=== PATIENT | female | born 1935 | race Caucasian/White ===

== ENCOUNTER 2018-12-20 09:31 | Inpatient (IN) | payer MEDICARE, BC ==
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
[2018-12-20] MEDS ORDERED: Albuterol/Ipratropium 3.0-0.5 MG/3 ML Neb Soln NEB ONE (09:55)
[2018-12-20] MEDS ORDERED: Dextrose 5%-0.9% NaCl 1,000 ML IV SCH (10:00)
[2018-12-20] MEDS ORDERED: LORazepam 2 MG/ML SDV IVPUSH ONE ×2 (10:25→23:02)
[2018-12-20] MEDS ORDERED: LORazepam 2 MG/ML SDV ONE (10:27)
[2018-12-20] MEDS ORDERED: Furosemide 40 MG/4 ML VIAL IVPUSH ONE (11:45)
[2018-12-20] MEDS ORDERED: Morphine 2 MG/ML Syringe IVPUSH PRN (12:19)
[2018-12-20] MEDS ORDERED: Albuterol/Ipratropium 3.0-0.5 MG/3 ML Neb Soln NEB PRN (12:19)
[2018-12-20] MEDS ORDERED: Ondansetron 4 MG/2 ML SDV IV PRN (12:19)
--- NOTE | 2018-12-20 12:23 | PCM.HP ---
H&P History of Present Illness - General Date of Service: 12/20/18 Admit Problem/Dx: Admission Diagnosis/Problem Admission Diagnosis/Problem COPD, Severe chronic obstructive pulmonary disease Source of Information: Patient, Family, Provider, RN Notes Reviewed History Limitations: Reports: Altered Mental Status, Respiratory Distress - History of Present Illness Initial Comments - Free Text/Narative: This is an 83 yo elderly white female with past medical hx/o Advanced COPD with Chronic Hypoxia Requiring Supplemental O2 at 2L NC who comes in for evaluation of acute decompensation and worsening dyspnea. She is confused and unable to answer simple questions. She carries a hx/o end stage COPD and currently on BIPAP while in ED. She uses accessory muscles and her breathing is labored. Her initial work up in ED reveals a severely acidotic ABG with pH of 7.20, POC2 level of 124 and PO2 level of 33. After talking to her family/DPOA how they want me to treat her, they decided to make her DNR/DNI with comfort measures. Therefore she is being admitted for end of life care. - Related Data Allergies/Adverse Reactions: Allergies Allergy/AdvReac Type Severity Reaction Status Date / Time Penicillins Allergy Cannot Verified 12/20/18 09:51 Remember Home Medications: Home Meds Arformoterol [Brovana] 15 mcg INH Q12HR 12/20/18 [History] Budesonide [Pulmicort] 0.5 mg IH BID 12/20/18 [History] Gabapentin [Neurontin] 300 mg PO QID 12/20/18 [History] LORazepam [Ativan] 0.5 mg PO TID PRN 12/20/18 [History] Non-Formulary Medication [NF Drug] 2 puff INH DAILY 12/20/18 [History] Past Medical History HEENT History: Reports: Impaired Vision, Other (See Below) Other HEENT History: dentures upper and lower Cardiovascular History: Reports: Heart Failure, High Cholesterol Respiratory History: Reports: COPD (End-stage COPD. On oxygen at 2 L/m all times. 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: Musculoskeletal History: Reports: Back Pain, Chronic, Other (See Below) Other Musculoskeletal History: neck pain from bone spur Psychiatric History: Reports: Anxiety Social & Family History - Family History Family Medical History: Noncontributory - Tobacco Use Smoking Status *Q: Former Smoker Used Tobacco, but Quit: Yes Month/Year Tobacco Last Used: 2010 - Caffeine Use Caffeine Use: Reports: Coffee - Recreational Drug Use Recreational Drug Use: No - Living Situation & Occupation Living situation: Reports: Occupation: Retired H&P Review of Systems - Review of Systems: Review Of Systems: Unable To Obtain General: Reports: Malaise, Weakness, Fatigue. Denies: Fever, Chills HEENT: Reports: No Symptoms Pulmonary: Reports: Shortness of Breath, Wheezing Cardiovascular: Reports: Dyspnea on Exertion, Blood Pressure Problem Gastrointestinal: Reports: Constipation, Decreased Appetite. Denies: Abdominal Pain, Nausea, Vomiting Genitourinary: Reports: No Symptoms Musculoskeletal: Reports: Joint Pain Skin: Reports: Bruising. Denies: Cyanosis, Jaundice, Mottled, Diaphoresis, Erythema, Wound Psychiatric: Reports: Confusion, Anxiety. Denies: Agitation, Hallucinations, Suicidal Ideation Neurological: Reports: Weakness. Denies: Confusion, Gait Disturbance Hematologic/Lymphatic: Reports: No Symptoms Immunologic: Reports: No Symptoms Review of Systems Comment:: She has BIPAP on. Exam - Exam Exam: See Below - Vital Signs Vital Signs: Last Vital Signs Temp 36.9 C 12/20/18 09:41 Pulse 115 H 12/20/18 09:41 Resp 30 H 12/20/18 09:41 BP 166/70 H 12/20/18 09:41 Pulse Ox 51 L 12/20/18 09:45 - Exam Quality Assessment: Other (cachectic) General: Severe Distress, Lethargic, Other (eyes are closed and unable to respond appropriately ) HEENT: Conjunctiva Clear, Hearing Intact, Nares Patent, Normal Nasal Septum, Pupils Equal, Pupils Reactive Neck: Supple, Trachea Midline, Other (accessory muscle use) Lungs: Decreased Breath Sounds, Wheezing, Other (increased work of breathing). No: Normal Respiratory Effort Cardiovascular: Regular Rhythm, Tachycardia GI/Abdominal Exam: Normal Bowel Sounds, Soft, Non-Tender, No Organomegaly, No Distention, No Abnormal Bruit (Female) Exam: Deferred Rectal (Female) Exam: Deferred Back Exam: Decreased Range of Motion, Other (kyphotic) Extremities: Normal Inspection, Non-Tender, No Pedal Edema, Normal Capillary Refill Peripheral Pulses: 1+: Posterior Tibial (L), Posterior Tibial (R), Dorsalis Pedis (L), Dorsalis Pedis (R) Skin: Warm, Dry, Intact Neuro Extensive - Mental Status: Other (he is appropraite for neurological exam due to alterd state of mind). No: Oriented x3 Neuro Extensive - Motor, Sensory, Reflexes: Other (she is not appropriate for examination) Psychiatric: Other (lethargic) - Patient Data Lab Results Last 24 hrs: Laboratory Results - last 24 hr 12/20/18 12/20/18 12/20/18 Range/Units 09:45 10:10 10:10 WBC 6.52 (3.98-10.04) K/mm3 RBC 3.46 L (3.98-5.22) M/mm3 Hgb 11.4 (11.2-15.7) gm/L Hct 39.8 (34.1-44.9) % MCV 115.0 H (79.4-94.8) fl MCH 32.9 H (25.6-32.2) pg MCHC 28.6 L (32.2-35.5) g/dl RDW Std Deviation 54.3 H (36.4-46.3) fL Plt Count 159 L (182-369) K/mm3 MPV 10.6 (9.4-12.3) fl Neutrophils % (Manual) 80 H (40-60) % Band Neutrophils % 0 (0-10) % Lymphocytes % (Manual) 11 L (20-40) % Atypical Lymphs % 0 % Monocytes % (Manual) 9 (2-10) % Eosinophils % (Manual) 0 L (0.7-5.8) % Basophils % (Manual) 0 L (0.1-1.2) Toxic Granulation 1+ slight Platelet Estimate Adequate Polychromasia 1+ slight Hypochromasia 2+ moderate Macrocytosis 2+ moderate Stomatocytes 2+ moderate RBC Morph Comment Abnormal PT 10.8 (9.5-12.1) SECONDS INR 0.99 APTT 27 (24-31) SECONDS Puncture Site Rt radial ABG pH 7.20 L (7.35-7.45) ABG pCO2 124.1 H* (35.0-45.0) mmHg ABG pO2 42.0 L (80.0-100.0) mmHg ABG HCO3 46.6 H (22.0-26.0) meq/L ABG O2 Saturation 65.7 L (96.0-97.0) % ABG Base Excess 14.2 H (-2-2.0) Alfredo Test Positive A-a Gradient 8 mmHg O2 Delivery Device Bipap Oxygen Flow Rate 3.0 Sodium (136-145) mEq/L Potassium (3.5-5.1) mEq/L Chloride (98-107) mEq/L Carbon Dioxide (21-32) mEq/L Anion Gap (5-15) BUN (7-18) mg/dL Creatinine (0.55-1.02) mg/dL Est Cr Clr Drug Dosing Estimated GFR (MDRD) (>60) mL/min BUN/Creatinine Ratio (14-18) Glucose (83-115) mg/dL Lactic Acid (0.4-2.0) mmol/L Calcium (8.5-10.1) mg/dL Magnesium (1.8-2.4) mg/dl Total Bilirubin (0.2-1.0) mg/dL AST (15-37) U/L ALT (14-59) U/L Alkaline Phosphatase (46-116) U/L CK-MB (CK-2) (0-3.6) ng/ml Troponin I (0.00-0.056) ng/mL NT-Pro-B Natriuret Pep (0-450) pg/mL Total Protein (6.4-8.2) g/dl Albumin (3.4-5.0) g/dl Globulin gm/dL Albumin/Globulin Ratio (1-2) 12/20/18 12/20/18 12/20/18 Range/Units 10:10 10:10 10:10 WBC (3.98-10.04) K/mm3 RBC (3.98-5.22) M/mm3 Hgb (11.2-15.7) gm/L Hct (34.1-44.9) % MCV (79.4-94.8) fl MCH (25.6-32.2) pg MCHC (32.2-35.5) g/dl RDW Std Deviation (36.4-46.3) fL Plt Count (182-369) K/mm3 MPV (9.4-12.3) fl Neutrophils % (Manual) (40-60) % Band Neutrophils % (0-10) % Lymphocytes % (Manual) (20-40) % Atypical Lymphs % % Monocytes % (Manual) (2-10) % Eosinophils % (Manual) (0.7-5.8) % Basophils % (Manual) (0.1-1.2) Toxic Granulation Platelet Estimate Polychromasia Hypochromasia Macrocytosis Stomatocytes RBC Morph Comment PT (9.5-12.1) SECONDS INR APTT (24-31) SECONDS Puncture Site ABG pH (7.35-7.45) ABG pCO2 (35.0-45.0) mmHg ABG pO2 (80.0-100.0) mmHg ABG HCO3 (22.0-26.0) meq/L ABG O2 Saturation (96.0-97.0) % ABG Base Excess (-2-2.0) Alfredo Test A-a Gradient mmHg O2 Delivery Device Oxygen Flow Rate Sodium 147 H (136-145) mEq/L Potassium 4.7 (3.5-5.1) mEq/L Chloride 105 (98-107) mEq/L Carbon Dioxide 41 H* (21-32) mEq/L Anion Gap 5.7 (5-15) BUN 21 H (7-18) mg/dL Creatinine 0.5 L (0.55-1.02) mg/dL Est Cr Clr Drug Dosing TNP Estimated GFR (MDRD) > 60 (>60) mL/min BUN/Creatinine Ratio 42.0 H (14-18) Glucose 151 H (83-115) mg/dL Lactic Acid 0.7 (0.4-2.0) mmol/L Calcium 9.6 (8.5-10.1) mg/dL Magnesium 1.9 (1.8-2.4) mg/dl Total Bilirubin 0.4 (0.2-1.0) mg/dL AST 19 (15-37) U/L ALT 22 (14-59) U/L Alkaline Phosphatase 52 (46-116) U/L CK-MB (CK-2) 4.9 H (0-3.6) ng/ml Troponin I 0.043 (0.00-0.056) ng/mL NT-Pro-B Natriuret Pep 987 H (0-450) pg/mL Total Protein 7.0 (6.4-8.2) g/dl Albumin 3.6 (3.4-5.0) g/dl Globulin 3.4 gm/dL Albumin/Globulin Ratio 1.1 (1-2) 12/20/18 Range/Units 10:56 WBC (3.98-10.04) K/mm3 RBC (3.98-5.22) M/mm3 Hgb (11.2-15.7) gm/L Hct (34.1-44.9) % MCV (79.4-94.8) fl MCH (25.6-32.2) pg MCHC (32.2-35.5) g/dl RDW Std Deviation (36.4-46.3) fL Plt Count (182-369) K/mm3 MPV (9.4-12.3) fl Neutrophils % (Manual) (40-60) % Band Neutrophils % (0-10) % Lymphocytes % (Manual) (20-40) % Atypical Lymphs % % Monocytes % (Manual) (2-10) % Eosinophils % (Manual) (0.7-5.8) % Basophils % (Manual) (0.1-1.2) Toxic Granulation Platelet Estimate Polychromasia Hypochromasia Macrocytosis Stomatocytes RBC Morph Comment PT (9.5-12.1) SECONDS INR APTT (24-31) SECONDS Puncture Site Lt radial ABG pH 7.27 L (7.35-7.45) ABG pCO2 95.3 H* (35.0-45.0) mmHg ABG pO2 33.0 L* (80.0-100.0) mmHg ABG HCO3 42.4 H (22.0-26.0) meq/L ABG O2 Saturation 57.1 L (96.0-97.0) % ABG Base Excess 12.6 H (-2-2.0) Lafredo Test Positive A-a Gradient 78 mmHg O2 Delivery Device Bipap Oxygen Flow Rate 4.5 Sodium (136-145) mEq/L Potassium (3.5-5.1) mEq/L Chloride (98-107) mEq/L Carbon Dioxide (21-32) mEq/L Anion Gap (5-15) BUN (7-18) mg/dL Creatinine (0.55-1.02) mg/dL Est Cr Clr Drug Dosing Estimated GFR (MDRD) (>60) mL/min BUN/Creatinine Ratio (14-18) Glucose (83-115) mg/dL Lactic Acid (0.4-2.0) mmol/L Calcium (8.5-10.1) mg/dL Magnesium (1.8-2.4) mg/dl Total Bilirubin (0.2-1.0) mg/dL AST (15-37) U/L ALT (14-59) U/L Alkaline Phosphatase (46-116) U/L CK-MB (CK-2) (0-3.6) ng/ml Troponin I (0.00-0.056) ng/mL NT-Pro-B Natriuret Pep (0-450) pg/mL Total Protein (6.4-8.2) g/dl Albumin (3.4-5.0) g/dl Globulin gm/dL Albumin/Globulin Ratio (1-2) Result Diagrams: 12/20/18 10:10 12/20/18 10:10 EKG INTERPRETATION EKG Date: 12/20/18 Time: 10:36 Rhythm: Other (Sinus Tahcycardia) Rate (Beats/Min): 117 Ryde: RAD-Right Ryde Deviation P-Wave: Enlarged QRS: Other (Decreased voltage in th epre-cordial leads) ST-T: Other (Repolarization abnormality) QT: Prolonged Problem List Initiated/Reviewed/Updated: Yes Orders Last 24hrs: Active Orders 24 hr Category Date Time Status Admission Status [Patient Status] [ADT] Routine ADT 12/20/18 12:00 Active EKG Documentation Completion [RC] STAT Care 12/20/18 09:49 Active Ambriz Catheter Insertion [Insert Urinary Catheter] [OM. Care 12/20/18 11:45 Ordered PC] Q24H Oxygen Therapy [RC] ASDIRECTED Care 12/20/18 09:49 Active Oxygen Therapy [RC] PRN Care 12/20/18 12:19 Ordered RT Aerosol Therapy [RC] ASDIRECTED Care 12/20/18 09:55 Active RT Aerosol Therapy [RC] ASDIRECTED Care 12/20/18 12:22 Ordered Up ad Daria [RC] ASDIRECTED Care 12/20/18 12:19 Ordered Urinary Catheter Assessment [RC] ASDIRECTED Care 12/20/18 11:45 Active Vital Signs [RC] Q4H Care 12/20/18 12:19 Ordered Consult to Case Management/Division Operations Specialist [CONS] Cons 12/20/18 12:19 Ordered Routine Consult to Hospice [CONS] Routine Cons 12/20/18 12:22 Ordered Consult to Spiritual Care [CONS] Routine Cons 12/20/18 12:19 Ordered Respiratory Care Assess and Treatment [CONS] Routine Cons 12/20/18 12:19 Ordered Regular Diet [DIET] Diet 12/20/18 Lunch Ordered Chest 1V Frontal [CR] Stat Exams 12/20/18 09:49 Taken CULTURE BLOOD [BC] Stat Lab 12/20/18 10:10 Received CULTURE BLOOD [BC] Stat Lab 12/20/18 10:18 Received URINALYSIS W/MICROSCOPIC [UA W/MICROSCOPIC] [URIN] Stat Lab 12/20/18 09:50 Ordered Albuterol/Ipratropium [DuoNeb 3.0-0.5 MG/3 ML] Med 12/20/18 12:19 Ordered 3 ml NEB Q4H PRN Dextrose 5%-0.9% NaCl [Dextrose 5%-Normal Saline] 1,000 Med 12/20/18 10:00 Active ml IV ASDIRECTED LORazepam [Ativan] Med 12/20/18 12:19 Ordered 0.5 mg IV Q4H PRN Morphine Med 12/20/18 12:19 Ordered 0.25 mg IVPUSH Q4H PRN Ondansetron [Zofran] Med 12/20/18 12:19 Ordered 4 mg IV Q6H PRN Blood Culture x2 Reflex Set [OM.PC] Stat Oth 12/20/18 09:50 Ordered Resuscitation Status Routine Resus Stat 12/20/18 12:19 Ordered Medication Orders Dextrose/Sodium Chloride (Dextrose 5%-Normal Saline) 1,000 mls @ 500 mls/hr IV ASDIRECTED TYLER Last Admin: 12/20/18 10:02 Dose: 500 mls/hr Assessment/Plan Comment:: Assessment/Plan: Acute: Primary: Admission for End of Life Care - COPD Exacerbation and Acute Combined Respiratory Failure - Family wants DNR/DNI/Comfort Measures - Low dose Morphine/Ativan with BIPAP/Supplemental O2 while waiting for other family member from out of state to make it here - SW/CM for discharge planning Secondary: COPD Exacerbation - Advanced/End Stage COPD - Initial ABG shows pH of 7.20, pCO2 of 124, pO2 of 42, and O2 Sat of 65.7%; repeat ABG shows pH of 7.27, pCO2 of 95.3, pO2 of 33, and O2 Sat of 57.1% - Severe acidosis but she DNI - Supplemental O2 and Douneb Acute Combined Respiratory Failure - ABG shows severe Hypercapnia and Hypoxia - Currently on BIPAP 06/15 - She is DNR/DNI Chronic: Advanced COPD Plan: Admit to [facility] No routine AM Labs and oral Pills Comfort Measures Hospice/Palliative Care Ambriz catheter, BIPAP and supplemental O2 SW/CM for d/c planning Spiritual Care consult Her family is aware, overall prognosis is very poor.
[2018-12-20] MEDS: Morphine 2 MG/ML Syringe IVPUSH PRN ×2 (15:10→20:02)
--- NOTE | 2018-12-20 15:14 | CR ---
Chest: Portable view of the chest was obtained. Comparison: Prior chest x-ray of 04/30/13. Heart size and mediastinum are normal. Lungs are clear but hyperinflated. Bony structures show mild scoliosis within the spine. Osteopenia is present. Impression: 1. Emphysematous change. Nothing acute is appreciated. Diagnostic code #2
[2018-12-20] MEDS: LORazepam 2 MG/ML SDV IV PRN (19:06)
[2018-12-20] MEDS ORDERED: Morphine 2 MG/ML Syringe IVPUSH ONE (22:08)
[2018-12-21] MEDS: Morphine 2 MG/ML Syringe IVPUSH PRN ×2 (01:41→05:13)
[2018-12-21] MEDS: LORazepam 2 MG/ML SDV IV PRN (02:56)
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
== END 2018-12-21 06:35 | disposition expired | DRG 189 ==
LOC: JD.ED 09:31 → JD.MS 12:00
PROVIDERS: ADMIT Internal Medicine; ATTEND Internal Medicine
PROC: 5A09357 Assistance with Respiratory Ventilation, Less than 24 Consecutive Hours, Continuous Positive Airway Pressure (ICD-10-PCS; principal; 2018-12-20)
DX: J96.22 Acute and chronic respiratory failure with hypercapnia (principal); J44.1 Chronic obstructive pulmonary disease with (acute) exacerbation; E87.2 Acidosis; Z51.5 Encounter for palliative care; Z66 Do not resuscitate; J96.21 Acute and chronic respiratory failure with hypoxia; K59.00 Constipation, unspecified; N39.46 Mixed incontinence; M54.2 Cervicalgia; M54.9 Dorsalgia, unspecified; M15.9 Polyosteoarthritis, unspecified; M40.204 Unspecified kyphosis, thoracic region; I45.81 Long QT syndrome; I50.9 Heart failure, unspecified; R41.0 Disorientation, unspecified; R41.82 Altered mental status, unspecified; R45.1 Restlessness and agitation; R06.82 Tachypnea, not elsewhere classified; R06.2 Wheezing; R53.83 Other fatigue; R06.00 Dyspnea, unspecified; R05 Cough; R63.0 Anorexia; R53.81 Other malaise; R06.02 Shortness of breath; R53.1 Weakness; R00.0 Tachycardia, unspecified; M25.552 Pain in left hip; M25.551 Pain in right hip; M25.562 Pain in left knee; M25.561 Pain in right knee; R06.03 Acute respiratory distress; Z77.110 Contact with and (suspected) exposure to air pollution; Z99.81 Dependence on supplemental oxygen; Z88.0 Allergy status to penicillin; Z79.899 Other long term (current) drug therapy; Z87.891 Personal history of nicotine dependence
CPT/HCPCS: 36415; 36600 ×2; 71045; 80053; 82553; 82803 ×2; 83605; 83735; 83880; 84484; 85007; 85027; 85610; 85730; 87040 ×2; 93005; 94640; 96361; 96374; 96375; 99285; J2060; J7042; 51702; 81001; 93010; 94660; J1940; J2270; J7620-GY